=== PATIENT | female | born 1955 | race Caucasian/White ===

== ENCOUNTER → 2017-02-22 | Outpatient (CLI) | payer BC ==
[2015-11-15 12:16] VITALS: BP 143/63
--- NOTE | 2017-02-22 17:01 | MRI ---
HISTORY: Lower back pain with radiculopathy Study: Lumbar spine MRI without contrast Comparison: None Technique: Multiplanar multi-sequence MRI of the lumbar spine was obtained. Sagittal T1, sagittal T 2, and stir weighted images, axial T1, and axial T2 images were obtained. Findings: Bone marrow signal and lumbar spine vertebral body heights and alignment appear normal. No acute fra cture, subluxation or suspicious osseous lesion is identified. The conus is normal in signal and caliber, terminating at L1-L2. The cauda equina also appears kimberly l. Apart from a tiny probable cyst within the upper pole of the right kidney, the imaged paraspinal soft tissues appear normal. T12-L1, L1-L2: Very mild facet arthropathy. Otherwise, unremarkable. L2 - L3: There is mild disk desiccation, circumferential disc bulge and bilateral ligamentum flavum thickening, which results in narrowing of the left and right lateral recesses as well as mild spinal canal stenosis. No significant foraminal narrowing is seen. L3-L4, L4-L5: There is mild disk desiccation, circumferential disc bulge and bilateral ligamentum fl avum thickening. There is mild resultant bilateral foraminal narrowing without significant canal kaykay nosis. L5 - S1: There is mild broad-based posterior disc bulge, facet arthropathy and ligamentum flavum thi ckening without significant spinal canal or neural foraminal stenosis. IMPRESSION: Mild multilevel degenerative changes of the lumbar spine. Findings are most pronounced at L2-L3 wher e there is moderate narrowing of the left and right lateral recesses with suspected contact with the transiting bilateral L3 nerve roots. There is also mild canal stenosis at this level, as detailed a tahir. Reported By:
== END ==
LOC: RAD 15:24
PROVIDERS: ATTEND Internal Medicine
DX: M54.17 Radiculopathy, lumbosacral region (principal); M79.1 Myalgia
CPT/HCPCS: 72148

== ENCOUNTER → 2017-06-07 | Outpatient (CLI) | payer BC ==
[2015-11-15 12:16] VITALS: BP 143/63
--- NOTE | 2017-06-07 11:39 | RAD ---
Cervical spine, five views Indication: Neck pain and stiffness Comparison: None Findings: Vertebral body heights and alignment are normal. No acute fracture, subluxation or abnormal translation is identified on flexion/extension views. There is minimal degenerative disc disease at C5-C6 and C6-C7 and mild facet arthropathy throughout the cervical spine. Prevertebral soft tissues a re unremarkable. Impression: Very mild degenerative changes, as above. Reported By:
--- NOTE | 2017-06-07 11:51 | MRI ---
MRI SPINE CERVICAL WITHOUT CONTRAST CLINICAL HISTORY: 61-year-old female with neck pain and stiffness COMPARISON: None. Technique: Multiplanar, multisequence MRI images of the cervical spine were obtained without the adm inistration of intravenous contrast. FINDINGS: Mild straightening of the cervical lordosis as imaged. Alignment is maintained. The cranioc ervical junction is normal. Vertebral body and disc space height are maintained. Vertebral marrow and intervertebral disc space signal are normal. Cord signal is normal. The visualized posterior fossa structures are normal. C2-C3: No central canal or neural foraminal stenosis. C3-C4: Small right central disc osteophyte without cord impingement or signal change. No central cal l or neural foraminal stenosis. C4-C5: Broad-based disc osteophyte with mild flattening of the ventral cord without cord signal munson e. No central canal or neural foraminal stenosis. C5-C6: Central disc osteophyte with mild flattening of the ventral cord without cord signal change. N o central canal or neural foraminal stenosis. C6-C7: Broad-based disc osteophyte without central canal or neural foraminal stenosis. C7-T1: No central canal or neural foraminal stenosis. IMPRESSION: 1. Mild multilevel disc degeneration without significant central canal or neural foraminal stenosis o r cord signal change. 2. See level by level descriptions above. Reported By:
--- NOTE | 2017-06-07 11:54 | MRI ---
MRI right shoulder without contrast Indication: Right shoulder pain and stiffness Comparison: None Technique: Multiplanar, multi sequence MR images of the right shoulder were obtained without contrast . Findings: Mild degenerative changes of the AC joint are noted, without marked encroachment on the rot ator cuff. Small amount of fluid is present within the subacromial/subdeltoid bursa. There is interme diate signal in the distal supraspinatus and infraspinatus tendons, with some fluid signal seen withi n the substance of the distal conjoined tendon, suggestive for partial interstitial tear. There is hi gh-grade partial articular sided tear of the superior subscapularis tendon. No definite full-thicknes s cuff tear or tendon retraction. The long head biceps tendon is not significantly subluxed, although there is abnormal signal of the intra-articular portion of the tendon, with linear intermediate sign al seen within the proximal extra-articular portion of the tendon (for example axial PD image 18). There is irregularity and abnormal signal of the superior, posterior superior, and anterior labrum barrett ggestive for tear. Overall, this irregularity extends from approximately 10 o'clock through at least 3 o'clock. The posterior and inferior labrum are grossly intact. There is cystic change within the an terior superior glenoid and base of the coracoid, suggestive for intraosseous ganglion or paralabral cyst formation. No significant joint effusion or muscle atrophy. Impression: 1. Supraspinatus and infraspinatus tendinosis with suggestion of partial interstitial tear of the dis sendy conjoined tendon. High-grade partial articular sided tear of superior subscapularis tendon. 2. Partial split tear of the intra-articular and proximal extra-articular long head biceps tendon. 3. Superior labral tear with anterior and posterior extension. The full extent of this tear could be further evaluated with MR arthrography, if indicated. 4. AC joint degenerative disease, subacromial/subdeltoid bursitis. Reported By:
--- NOTE | 2017-06-07 12:22 | MRI ---
MRI pelvis without contrast Indication: Pelvic pain Comparison: None Technique: Multiplanar, multi sequence MR images of the pelvis were obtained without contrast. Findings: The marrow signal bony alignment are normal, without evidence for acute fracture, stress re action, or suspicious lesion. The SI joints and pubic symphysis are intact. There are minimal degener ative changes of both hips. No evidence for high-grade femoroacetabular chondrosis. There is moderate right hip joint effusion. No associated synovitis or large loose intra-articular body is identified. No left-sided joint effusion. The ligamentum teres is grossly intact bilaterally. No overt labral te ar or paralabral cyst. There is edema about the distal right gluteus minimus and medius tendons, cons istent with tendinosis. There is bilateral hamstring tendinopathy. The neurovascular structures about the hips are grossly normal. Impression: 1. Minimal bilateral hip DJD with nonspecific right hip joint effusion. No overt labral tear. 2. Right gluteus minimus and medius tendinosis. Bilateral hamstring tendinopathy. 3. No acute skeletal abnormality or suspicious osseous lesion. Reported By:
== END | disposition home or self-care (01) ==
LOC: RAD 08:53
PROVIDERS: ATTEND Neurological Surgery
DX: M25.511 Pain in right shoulder (principal); R10.2 Pelvic and perineal pain; M47.892 Other spondylosis, cervical region; M16.0 Bilateral primary osteoarthritis of hip; M25.451 Effusion, right hip; M76.01 Gluteal tendinitis, right hip; S76.312A Strain of muscle, fascia and tendon of the posterior muscle group at thigh level, left thigh, initial encounter; S76.311A Strain of muscle, fascia and tendon of the posterior muscle group at thigh level, right thigh, initial encounter; X58.XXXA Exposure to other specified factors, initial encounter; S46.111A Strain of muscle, fascia and tendon of long head of biceps, right arm, initial encounter; M19.011 Primary osteoarthritis, right shoulder; M50.322 Other cervical disc degeneration at C5-C6 level
CPT/HCPCS: 72050; 72141; 72195; 73221

== ENCOUNTER 2018-07-09 13:05 | Observation (INO) ==
[2018-07-09 13:37] LABS: BASOPHILS # (AUTO) 0.1 X10^3/uL (0.0-0.1); BASOPHILS % (AUTO) 1.2 % (0.2-1.0); EOSINOPHILS # (AUTO) 0.1 x10^3/uL (0.0-0.2); HEMOGLOBIN 12.9 g/dL (12.0-16.0); LYMPHOCYTES # (AUTO) 1.7 X10^3/uL (1.3-2.9); LYMPHOCYTES % (AUTO) 26.4 % (21.0-51.0); MEAN CORPUSCULAR HEMOGLOBIN 29.8 pg (27.0-34.0); MEAN CORPUSCULAR HGB CONC 33.9 g/dL (33.0-35.0); MEAN CORPUSCULAR VOLUME 87.9 fL (80.0-100.0); MEAN PLATELET VOLUME 8.9 fL (7.4-11.0); MONOCYTES # (AUTO) 0.4 x10^3/uL (0.3-0.8); NEUTROPHILS # (AUTO) 4.2 x10^3/uL (2.2-4.8); NEUTROPHILS % (AUTO) 65.4 % (42.0-75.0); PLATELET COUNT 210 X10^3/uL (150.0-450.0); RED BLOOD COUNT 4.32 X10^6/uL (3.5-5.4); RED CELL DISTRIBUTION WIDTH 13.5 % (11.6-16.5); WHITE BLOOD COUNT 6.5 X10^3/uL (3.6-10.0)
--- NOTE | 2018-07-09 13:37 | RAD ---
Examination: AP chest History: Chest pain SOB Comparison 04/28/2017 Findings: Normal heart size with clear lungs and pleural spaces. Impression: No acute or significant chest abnormality demonstrated. Reported By:
[2018-07-09 13:51] LABS: BLOOD UREA NITROGEN 16 mg/dL (7-18); CALCIUM 8.8 mg/dL (8.5-10.1); CARBON DIOXIDE 22.7 mmol/L (21-32); CHLORIDE 109 mmol/L (98-107); COR NA(FOR HYPERGLY) 142 mmol/L (136-145); CREATININE 0.79 mg/dL (0.55-1.02); SODIUM 142 mmol/L (136-145); eGFR NON BLACK RACES > 60 (>60)
[2018-07-09] MEDS ORDERED: DUONEB 0.5 MG/3 MG NEB ONE (14:28)
[2018-07-09 14:31] LABS: CKMB % 2.3 % (<4); CREATINE KINASE 173 Units/L (26-192); CREATINE KINASE MB 3.9 ng/mL (0-4.0)
[2018-07-09 14:32] LABS: TROPONIN I 0.23 ng/mL (0-1.5)
--- NOTE | 2018-07-09 14:37 | DR.SOBA ---
HPI Time Seen Time Seen by Provider: 07/09/18 13:25 Primary Care Physician Primary Care Physician: JHONATAN HOOKS Complaints Chief Complaint:: PT. C/O SHORTNESS OF BREATH AND TIGHTNESS TO HER CHEST. CHEST PAIN RADIATED THROUGH TO BACK THIS MORNING. PT. STATES SHE IS SHORT OF BREATH AT REST AND UPON EXERTION. PT. ALSO C/O FATIGUE. Reviewed Nurses Notes Reviewed: Yes Source History Provided: Patient Mode of Arrival Mode of Arrival: Ambulatory Timing Onset of Chief Complaint: 07/06/18 PMH PMH Past Medical History: Yes Past Medical History: Asthma, Dyslipidemia and Hypertension Past Surgical History: Yes Surgical History: , Cholecystectomy and Hysterectomy Family History History of Family Medical Conditions: Yes Family Medical History: Cancer, [place] and Hypertension Social History Does patient currently use any type of tobacco product: No Have you used tobacco products in the last 12 months: No Type of Tobacco Use: None Does any household member use tobacco: No Alcohol Use: None Do you use any recreational Drugs:: No Lives With: Family Lives Where: Home infectious screening In the last 2 months have you had wt loss of >10#?: NO Have you had fever, night sweats or hemotysis?: No Have you traveled outside the country in the last 6 months?: No Isolation: Standard ROS Review of Systems Constitutional: No Symptoms Reported Eyes: No Symptoms Reported ENTM: No Symptoms Reported Respiratoy: Short of Breath Cardiovascular: Chest Pain Gastrointestinal/Abdominal: No Symptoms Reported Genitourinary: No Symptoms Reported Neurological: No Symptoms Reported Musculoskeletal: No Symptoms Reported Integumentary: No Symptoms Reported Hematologic/Lymphatic: No Symptoms Reported Endocrine: No Symptoms Reported Psychiatric: No Symptoms Reported All Other Systems: Reviewed and Negative PE Vital Signs Vitals: Temperature 99.0 F Pulse Rate [Apical] 83 Pulse Rate 83 Respiratory Rate 23 Blood Pressure [Left Arm] 177/86 Blood Pressure [Right Arm] 136/69 Blood Pressure 125/64 O2 Sat by Pulse Oximetry 99 General Limitations: No Limitations General Appearance: Alert and In No Apparent Distress Head Head Exam: Normal Inspection, Atraumatic and Normocephalic Eyes Eye exam: Normal Appearance and EOMI ENT ENT Exam: Normal Exam, Normal Oropharynx and Mucous Membranes Moist Neck Neck Exam: Normal Inspection, Full ROM and Trachea Midline Chest Chest Inspection: Normal Inspection and Symmetric Chest Wall Rise Respiratory Respiratory Exam: Normal Lung Sounds Bilat Cardiovascular Cardiovascular Exam: Regular Rate, Irregular Rhythm, +S1 and +S2 Abdominal Exam Abdominal Exam: Normal Inspection, Normal Bowel Sounds and Soft Extremities Extremities Exam: Normal Inspection and Full ROM Back Back Exam: Normal Inspection Neurologic Neurological Exam: Alert and Oriented X3 Psychiatric Psychiatric Exam: Normal Affect and Normal Mood Skin Skin Exam: Warm and Dry COURSE Reevaluation 1st: Unchanged 2nd: Unchanged Education/Counseling Education/Counseling: Patient, Family, Education and Counseling Educated On: Treatment, Diagnosis, Prognosis and Needs for Follow Up ROR Labs Reviewed Result Diagrams: 07/11/18 05:08 07/11/18 05:08 Laboratory: WBC 6.6 X10^3/uL (3.6-10.0) 07/11/18 05:08 RBC 4.12 X10^6/uL (3.5-5.4) 07/11/18 05:08 Hgb 12.2 g/dL (12.0-16.0) 07/11/18 05:08 Hct 36.1 % (36.0-47.0) 07/11/18 05:08 MCV 87.6 fL (80.0-100.0) 07/11/18 05:08 MCH 29.7 pg (27.0-34.0) 07/11/18 05:08 MCHC 33.9 g/dL (33.0-35.0) 07/11/18 05:08 RDW 13.2 % (11.6-16.5) 07/11/18 05:08 Plt Count 188 X10^3/uL (150.0-450.0) 07/11/18 05:08 MPV 8.9 fL (7.4-11.0) 07/11/18 05:08 Neut % (Auto) 58.5 % (42.0-75.0) 07/11/18 05:08 Lymph % (Auto) 31.4 % (21.0-51.0) 07/11/18 05:08 White % (Auto) 6.9 % (0.0-13.0) 07/11/18 05:08 Eos % (Auto) 2.2 % (0.9-2.9) 07/11/18 05:08 Baso % (Auto) 1.0 % (0.2-1.0) 07/11/18 05:08 Neut # (Auto) 3.9 x10^3/uL (2.2-4.8) 07/11/18 05:08 Lymph # (Auto) 2.1 X10^3/uL (1.3-2.9) 07/11/18 05:08 White # (Auto) 0.5 x10^3/uL (0.3-0.8) 07/11/18 05:08 Eos # (Auto) 0.1 x10^3/uL (0.0-0.2) 07/11/18 05:08 Baso # (Auto) 0.1 X10^3/uL (0.0-0.1) 07/11/18 05:08 Absolute Nucleated RBC 0.1 /100WBC 07/11/18 05:08 INR Target Range - 07/09/18 13:27 INR 0.98 (0.8-1.3) 07/09/18 13:27 APTT 30.4 SECONDS (22.9-36.5) 07/09/18 18:48 PTT Comment - 07/09/18 18:48 D-Dimer < 100 ng/mL (0-400) 07/09/18 13:27 Sodium 144 mmol/L (136-145) 07/11/18 05:08 Corrected Sodium TNP 07/11/18 05:08 Potassium 3.4 mmol/L (3.5-5.1) L 07/11/18 05:08 Chloride 108 mmol/L (98-107) H 07/11/18 05:08 Carbon Dioxide 24.4 mmol/L (21-32) 07/11/18 05:08 BUN 8 mg/dL (7-18) 07/11/18 05:08 Creatinine 0.69 mg/dL (0.55-1.02) 07/11/18 05:08 Est GFR (MDRD) Af Amer > 60 (>60) 07/11/18 05:08 Est GFR (MDRD) Non-Af > 60 (>60) 07/11/18 05:08 Glucose 96 mg/dL (65-99) 07/11/18 05:08 Calcium 8.3 mg/dL (8.5-10.1) L 07/11/18 05:08 Corrected Calcium TNP 07/11/18 05:08 Magnesium 2.0 mg/dL (1.7-2.9) 07/11/18 05:08 Total Bilirubin 0.30 mg/dL (0.2-1.0) 07/11/18 05:08 AST 22 Units/L (15-37) 07/11/18 05:08 ALT 34 Units/L (12-78) 07/11/18 05:08 Alkaline Phosphatase 87 Units/L (46-116) 07/11/18 05:08 Creatine Kinase 115 Units/L (26-192) 07/10/18 01:45 CK-MB (CK-2) 2.6 ng/mL (0-4.0) 07/10/18 01:45 CK/CKMB % Calc 2.3 % (<4) 07/10/18 01:45 Troponin I 0.32 ng/mL (0-1.5) 07/10/18 01:45 Total Protein 6.7 g/dL (6.4-8.2) 07/11/18 05:08 Albumin 3.5 g/dL (3.4-5.0) 07/11/18 05:08 Globulin 3.2 g/dL (2.5-4.5) 07/11/18 05:08 Albumin/Globulin Ratio 1.1 Ratio (1.1-2.1) 07/11/18 05:08 XRAY XRAY Interpreted by: Self XRAY Findings: NAD EKG Rate: 116 [place]: Normal Rhythm: Afib Diagnosis Discharge Problem: Atrial fibrillation, new onset, Acute dyspnea
[2018-07-09] MEDS ORDERED: CARDIZEM INJ 50 MG VIAL IVP ONE (15:15)
[2018-07-09] MEDS ORDERED: CARDIZEM INJ 50 MG VIAL ONE (15:16)
[2018-07-09] MEDS ORDERED: NS 1000 ML 1,000 ML IV ONE (15:32)
[2018-07-09] MEDS ORDERED: NS 1000 ML 1,000 ML ONE (15:32)
[2018-07-09] MEDS ORDERED: DUONEB 0.5 MG/3 MG NEB PRN (16:33)
[2018-07-09 16:58] VITALS: BMI 37.8
[2018-07-09] MEDS: NS 1000 ML 1,000 ML IV SCH ×2 (17:52→21:16)
[2018-07-09] MEDS ORDERED: HEPARIN SODIUM IN D5W 25,000 UNITS/500 ML BAG IV PRN (18:30)
[2018-07-09 19:19] LABS: CKMB % 2.6 % (<4); CREATINE KINASE MB 3.5 ng/mL (0-4.0); TROPONIN I 0.32 ng/mL (0-1.5)
[2018-07-09] MEDS ORDERED: DIOVAN TAB 80 MG PO SCH (20:30)
[2018-07-09] MEDS ORDERED: ELIQUIS PO SCH (21:00)
[2018-07-09] MEDS: CARDIZEM TAB 30 MG PLAIN PO SCH (21:15)
[2018-07-09] MEDS: ZOCOR TAB 20 MG PO SCH (21:15)
[2018-07-09] MEDS: PULMICORT NEB TX 0.5 MG NEB SCH (21:36)
[2018-07-10 02:21] LABS: CKMB % 2.3 % (<4); CREATINE KINASE MB 2.6 ng/mL (0-4.0); TROPONIN I 0.32 ng/mL (0-1.5)
[2018-07-10] MEDS: CARDIZEM TAB 30 MG PLAIN PO SCH ×2 (02:34→09:01)
[2018-07-10 05:58] LABS: BASOPHILS # (AUTO) 0.1 X10^3/uL (0.0-0.1); BASOPHILS % (AUTO) 1.3 % (0.2-1.0); EOSINOPHILS # (AUTO) 0.1 x10^3/uL (0.0-0.2); EOSINOPHILS % (AUTO) 2.1 % (0.9-2.9); HEMATOCRIT 33.4 % (36.0-47.0); HEMOGLOBIN 11.2 g/dL (12.0-16.0); MEAN CORPUSCULAR HEMOGLOBIN 29.9 pg (27.0-34.0); MEAN CORPUSCULAR HGB CONC 33.7 g/dL (33.0-35.0); MEAN CORPUSCULAR VOLUME 88.9 fL (80.0-100.0); MEAN PLATELET VOLUME 8.7 fL (7.4-11.0); MONOCYTES # (AUTO) 0.3 x10^3/uL (0.3-0.8); MONOCYTES % (AUTO) 5.6 % (0.0-13.0); NEUTROPHILS # (AUTO) 2.9 x10^3/uL (2.2-4.8); PLATELET COUNT 178 X10^3/uL (150.0-450.0); RED BLOOD COUNT 3.76 X10^6/uL (3.5-5.4); RED CELL DISTRIBUTION WIDTH 13.6 % (11.6-16.5); WHITE BLOOD COUNT 5.4 X10^3/uL (3.6-10.0)
[2018-07-10] MEDS: NS 1000 ML 1,000 ML IV SCH ×2 (06:00→10:19)
[2018-07-10 06:05] LABS: BLOOD UREA NITROGEN 11 mg/dL (7-18); CALCIUM 7.6 mg/dL (8.5-10.1); CARBON DIOXIDE 23.8 mmol/L (21-32); CHLORIDE 112 mmol/L (98-107); CREATININE 0.73 mg/dL (0.55-1.02); SODIUM 146 mmol/L (136-145); eGFR NON BLACK RACES > 60 (>60)
[2018-07-10] MEDS: PULMICORT NEB TX 0.5 MG NEB SCH ×2 (08:25→20:19)
[2018-07-10] MEDS: FLONASE NASAL SPRAY ENOSTRIL SCH (09:00)
[2018-07-10] MEDS ORDERED: PATIENT'S HOME MEDICATION (Budesonide-Formoterol 1 PUFF) IN SCH (09:00)
[2018-07-10] MEDS: SINGULAIR TAB 10 MG PO SCH (09:01)
[2018-07-10] MEDS: CYMBALTA PO SCH (09:01)
[2018-07-10] MEDS: PROTONIX TAB 40 MG PO SCH (09:01)
[2018-07-10] MEDS ORDERED: NS 100 ML IV 100 ML IV SCH (11:00)
[2018-07-10] MEDS: CARDIZEM CD 180 MG PO SCH (13:09)
[2018-07-10] MEDS ORDERED: NS 1000 ML 1,000 ML IV SCH (14:00)
[2018-07-10] MEDS: ZOCOR TAB 20 MG PO SCH (20:08)
[2018-07-11 05:43] LABS: BASOPHILS # (AUTO) 0.1 X10^3/uL (0.0-0.1); EOSINOPHILS # (AUTO) 0.1 x10^3/uL (0.0-0.2); EOSINOPHILS % (AUTO) 2.2 % (0.9-2.9); HEMATOCRIT 36.1 % (36.0-47.0); HEMOGLOBIN 12.2 g/dL (12.0-16.0); LYMPHOCYTES # (AUTO) 2.1 X10^3/uL (1.3-2.9); LYMPHOCYTES % (AUTO) 31.4 % (21.0-51.0); MEAN CORPUSCULAR HEMOGLOBIN 29.7 pg (27.0-34.0); MEAN CORPUSCULAR HGB CONC 33.9 g/dL (33.0-35.0); MEAN CORPUSCULAR VOLUME 87.6 fL (80.0-100.0); MEAN PLATELET VOLUME 8.9 fL (7.4-11.0); MONOCYTES # (AUTO) 0.5 x10^3/uL (0.3-0.8); MONOCYTES % (AUTO) 6.9 % (0.0-13.0); NEUTROPHILS # (AUTO) 3.9 x10^3/uL (2.2-4.8); NEUTROPHILS % (AUTO) 58.5 % (42.0-75.0); PLATELET COUNT 188 X10^3/uL (150.0-450.0); RED BLOOD COUNT 4.12 X10^6/uL (3.5-5.4); RED CELL DISTRIBUTION WIDTH 13.2 % (11.6-16.5); WHITE BLOOD COUNT 6.6 X10^3/uL (3.6-10.0)
[2018-07-11 06:02] LABS: ALANINE AMINOTRANSFERASE 34 Units/L (12-78); ALBUMIN 3.5 g/dL (3.4-5.0); ALKALINE PHOSPHATASE 87 Units/L (46-116); ASPARTATE AMINO TRANSFERASE 22 Units/L (15-37); BLOOD UREA NITROGEN 8 mg/dL (7-18); CALCIUM 8.3 mg/dL (8.5-10.1); CARBON DIOXIDE 24.4 mmol/L (21-32); CHLORIDE 108 mmol/L (98-107); CREATININE 0.69 mg/dL (0.55-1.02); SODIUM 144 mmol/L (136-145); TOTAL PROTEIN 6.7 g/dL (6.4-8.2); eGFR NON BLACK RACES > 60 (>60)
[2018-07-11] MEDS ORDERED: MICRO K EXTEN CAP 10 MEQ PO PRN (06:14)
[2018-07-11] MEDS ORDERED: POTASSIUM CHLORIDE LIQ 20 MEQ UDC PO PRN (06:14)
[2018-07-11] MEDS ORDERED: MAGNESIUM SULFATE 1 GRAM/100 mL PREMIX 1 GM/100 ML BAG IV PRN (06:14)
[2018-07-11] MEDS ORDERED: KLOR-CON PO PRN (06:14)
[2018-07-11] MEDS ORDERED: POTASSIUM CHL 60 MEQ/NS 0.45% 500 ML IV PRN (06:14)
[2018-07-11] MEDS ORDERED: K-RIDER 10 MEQ/NS 100 ML 10 MEQ/100 ML BAG IV PRN (06:14)
[2018-07-11] MEDS ORDERED: POTASSIUM CHL 40 MEQ/NS 0.45% 500 ML IV PRN (06:14)
[2018-07-11] MEDS ORDERED: K-DUR TAB 20 MEQ PO PRN (06:14)
[2018-07-11] MEDS: CARDIZEM CD 180 MG PO SCH (08:11)
[2018-07-11] MEDS: SINGULAIR TAB 10 MG PO SCH (08:11)
[2018-07-11] MEDS: FLONASE NASAL SPRAY ENOSTRIL SCH (08:12)
[2018-07-11] MEDS: PROTONIX TAB 40 MG PO SCH (08:12)
[2018-07-11] MEDS: CYMBALTA PO SCH (08:12)
[2018-07-11] MEDS: PULMICORT NEB TX 0.5 MG NEB SCH (09:00)
[2018-07-11 15:38] VITALS: BP 177/86
[2018-07-14] MEDS ORDERED: VITAMIN D (1.25MG) PO SCH (08:50)
--- NOTE | 2018-07-29 09:04 | DR.SOBA ---
HPI Time Seen Time Seen by Provider: 07/09/18 13:25 Primary Care Physician Primary Care Physician: JHONATAN HOOKS Complaints Chief Complaint:: PT. C/O SHORTNESS OF BREATH AND TIGHTNESS TO HER CHEST. CHEST PAIN RADIATED THROUGH TO BACK THIS MORNING. PT. STATES SHE IS SHORT OF BREATH AT REST AND UPON EXERTION. PT. ALSO C/O FATIGUE. Source History Provided: Patient Mode of Arrival Mode of Arrival: Ambulatory Timing Onset of Chief Complaint: 07/06/18 PMH PMH Past Medical History: Yes Past Medical History: Asthma, Dyslipidemia and Hypertension Past Surgical History: Yes Surgical History: , Cholecystectomy and Hysterectomy Family History History of Family Medical Conditions: Yes Family Medical History: Cancer, [place] and Hypertension Social History Does patient currently use any type of tobacco product: No Have you used tobacco products in the last 12 months: No Type of Tobacco Use: None Does any household member use tobacco: No Alcohol Use: None Do you use any recreational Drugs:: No Lives With: Family Lives Where: Home infectious screening In the last 2 months have you had wt loss of >10#?: NO Have you had fever, night sweats or hemotysis?: No Have you traveled outside the country in the last 6 months?: No Isolation: Standard PE Vital Signs Vitals: Temperature 99.0 F Pulse Rate [Apical] 83 Pulse Rate 83 Respiratory Rate 23 Blood Pressure [Left Arm] 177/86 Blood Pressure [Right Arm] 136/69 Blood Pressure 125/64 O2 Sat by Pulse Oximetry 99 ROR Labs Reviewed Result Diagrams: 07/11/18 05:08 07/11/18 05:08 Laboratory: WBC 6.6 X10^3/uL (3.6-10.0) 07/11/18 05:08 RBC 4.12 X10^6/uL (3.5-5.4) 07/11/18 05:08 Hgb 12.2 g/dL (12.0-16.0) 07/11/18 05:08 Hct 36.1 % (36.0-47.0) 07/11/18 05:08 MCV 87.6 fL (80.0-100.0) 07/11/18 05:08 MCH 29.7 pg (27.0-34.0) 07/11/18 05:08 MCHC 33.9 g/dL (33.0-35.0) 07/11/18 05:08 RDW 13.2 % (11.6-16.5) 07/11/18 05:08 Plt Count 188 X10^3/uL (150.0-450.0) 07/11/18 05:08 MPV 8.9 fL (7.4-11.0) 07/11/18 05:08 Neut % (Auto) 58.5 % (42.0-75.0) 07/11/18 05:08 Lymph % (Auto) 31.4 % (21.0-51.0) 07/11/18 05:08 [place] % (Auto) 6.9 % (0.0-13.0) 07/11/18 05:08 Eos % (Auto) 2.2 % (0.9-2.9) 07/11/18 05:08 Baso % (Auto) 1.0 % (0.2-1.0) 07/11/18 05:08 Neut # (Auto) 3.9 x10^3/uL (2.2-4.8) 07/11/18 05:08 Lymph # (Auto) 2.1 X10^3/uL (1.3-2.9) 07/11/18 05:08 [place] # (Auto) 0.5 x10^3/uL (0.3-0.8) 07/11/18 05:08 Eos # (Auto) 0.1 x10^3/uL (0.0-0.2) 07/11/18 05:08 Baso # (Auto) 0.1 X10^3/uL (0.0-0.1) 07/11/18 05:08 Absolute Nucleated RBC 0.1 /100WBC 07/11/18 05:08 INR Target Range - 07/09/18 13:27 INR 0.98 (0.8-1.3) 07/09/18 13:27 APTT 30.4 SECONDS (22.9-36.5) 07/09/18 18:48 PTT Comment - 07/09/18 18:48 D-Dimer < 100 ng/mL (0-400) 07/09/18 13:27 Sodium 144 mmol/L (136-145) 07/11/18 05:08 Corrected Sodium TNP 07/11/18 05:08 Potassium 3.4 mmol/L (3.5-5.1) L 07/11/18 05:08 Chloride 108 mmol/L (98-107) H 07/11/18 05:08 Carbon Dioxide 24.4 mmol/L (21-32) 07/11/18 05:08 BUN 8 mg/dL (7-18) 07/11/18 05:08 Creatinine 0.69 mg/dL (0.55-1.02) 07/11/18 05:08 Est GFR (MDRD) Af Amer > 60 (>60) 07/11/18 05:08 Est GFR (MDRD) Non-Af > 60 (>60) 07/11/18 05:08 Glucose 96 mg/dL (65-99) 07/11/18 05:08 Calcium 8.3 mg/dL (8.5-10.1) L 07/11/18 05:08 Corrected Calcium TNP 07/11/18 05:08 Magnesium 2.0 mg/dL (1.7-2.9) 07/11/18 05:08 Total Bilirubin 0.30 mg/dL (0.2-1.0) 07/11/18 05:08 AST 22 Units/L (15-37) 07/11/18 05:08 ALT 34 Units/L (12-78) 07/11/18 05:08 Alkaline Phosphatase 87 Units/L (46-116) 07/11/18 05:08 Creatine Kinase 115 Units/L (26-192) 07/10/18 01:45 CK-MB (CK-2) 2.6 ng/mL (0-4.0) 07/10/18 01:45 CK/CKMB % Calc 2.3 % (<4) 07/10/18 01:45 Troponin I 0.32 ng/mL (0-1.5) 07/10/18 01:45 Total Protein 6.7 g/dL (6.4-8.2) 07/11/18 05:08 Albumin 3.5 g/dL (3.4-5.0) 07/11/18 05:08 Globulin 3.2 g/dL (2.5-4.5) 07/11/18 05:08 Albumin/Globulin Ratio 1.1 Ratio (1.1-2.1) 07/11/18 05:08 Diagnosis Discharge Problem: Atrial fibrillation, new onset, Acute dyspnea
== END 2018-07-11 16:45 | disposition short-term general hospital (02) ==
LOC: ER 13:05 → ICU 13:05
PROVIDERS: ADMIT Internal Medicine; ATTEND Internal Medicine
DX: E78.2 Mixed hyperlipidemia; R94.31 Abnormal electrocardiogram [ECG] [EKG]; R06.02 Shortness of breath; R53.83 Other fatigue; K21.9 Gastro-esophageal reflux disease without esophagitis; J45.998 Other asthma; R07.89 Other chest pain; I48.91 Unspecified atrial fibrillation; I10 Essential (primary) hypertension; Z79.899 Other long term (current) drug therapy
CPT/HCPCS: 36415; 71010; 71045; 80048; 80053; 82550; 82553; 83735; 84484; 85025; 85378; 85610; 85730; 93005; 94640; 96365; 96367; 96374; 99218; 99284; A4222; G0378; J3490; J7030; J7626